=== PATIENT | female | born 1950 | race Caucasian/White ===

== ENCOUNTER 2021-04-22 12:39 | Inpatient (IN) ==
[2021-04-22] MEDS ORDERED: hydrALAZINE 20 MG/1 ML VIAL IV PRN (15:51)
[2021-04-22] MEDS ORDERED: DEXTROSE 50% 25 GM/50 ML VIAL IV PRN ×2 (15:51→16:12)
[2021-04-22] MEDS ORDERED: GLUCAGON 1 MG VIAL IM PRN (15:51)
[2021-04-22 15:58] LABS: ABG Base Excess 2.9 MMOL/L (-2.5-2.5); ABG Oxygen Saturation 95.8 % (95-100); ABG PCO2 47.1 MM HG (35-48); ABG PH 7.388 (7.35-7.45); ABG PO2 81.1 MM HG (80-95); ABG TCO2 26.2 MMOL/L (23-27); Allen Test Positive
[2021-04-22] MEDS ORDERED: ENOXAPARIN 40 MG/0.4 ML SYRINGE SUBCUT SCH (16:00)
[2021-04-22] MEDS ORDERED: [UNRECOGNIZED DRUG - REMARK] TRANSLING PRN (16:06)
[2021-04-22 16:38] LABS: Basophils % 0.3 % (0.0-0.8); Eosinophils % 0.3 % (0.00-10.9); Hematocrit 28.3 VOL% (35.7-47.0); Hemoglobin 8.5 GM/DL (12.0-16.0); Immature Granulocytes % 0.9 %; Immature Granulocytes Absolute 0.13 #; Lymphocytes # 1.3 10*3/uL (1.4-4.0); Lymphocytes % 8.8 % (21.3-54.2); Mean Corpuscular Volume 104.4 FL (87-102); Mean Platelet Volume 9.9 FL (9.6-12.0); Monocytes % 11.7 % (1.7-12.7); Platelet Count 278 T/CUMM (130-400); Red Blood Count 2.71 MC/CUMM (3.8-5.5); White Blood Count 14.5 T/CUMM (4-12)
[2021-04-22] MEDS: FUROSEMIDE 40 MG/4 ML VIAL IV SCH (16:50)
[2021-04-22 17:10] LABS: Calcium 8.2 MG/DL (8.5-10.1); Risk Ratio 1.43; Thyroid Stimulating Hormone 1.68 uIU/ml (0.358-3.74); VLDL Cholesterol 12.2 MG/DL
[2021-04-22] MEDS ORDERED: MAGNESIUM SULF RIDER 2 GM/50 ML PREMIX IV PRN (17:27)
[2021-04-22] MEDS ORDERED: MAGNESIUM SULF RIDER 4 GM/100 ML PREMIX IV PRN (17:27)
[2021-04-22] MEDS: INSULIN LISPRO 100 UNIT/ML SUBCUT SCH ×2 (18:10→21:34)
[2021-04-22] MEDS: ALBUTEROL/IPRATROPIUM 3 ML NEB RESP TX SCH (19:22)
[2021-04-22] MEDS: ENOXAPARIN 100 MG/ML SYRINGE SUBCUT SCH (19:35)
[2021-04-22] MEDS ORDERED: carvediloL 3.125 MG TABLET PO SCH (21:00)
[2021-04-22] MEDS: ACETAMINOPHEN 325 MG TABLET PO PRN (21:33)
[2021-04-23] MEDS: ALBUTEROL/IPRATROPIUM 3 ML NEB RESP TX SCH ×4 (00:59→19:38)
[2021-04-23] MEDS: ACETAMINOPHEN 325 MG TABLET PO PRN (02:15)
[2021-04-23 04:57] LABS: Basophils % 0.2 % (0.0-0.8); Eosinophils # 0.1 10*3/uL (0.0-0.87); Eosinophils % 0.5 % (0.00-10.9); Hematocrit 26.8 VOL% (35.7-47.0); Hemoglobin 8.5 GM/DL (12.0-16.0); Immature Granulocytes % 0.7 %; Lymphocytes # 1.4 10*3/uL (1.4-4.0); Lymphocytes % 9.9 % (21.3-54.2); Mean Corpuscular HGB Conc 31.7 GM/DL (32-36); Mean Corpuscular Volume 103.5 FL (87-102); Mean Platelet Volume 10.1 FL (9.6-12.0); Monocytes % 11.4 % (1.7-12.7); Neutrophils % 77.3 % (38.7-73.9); Platelet Count 287 T/CUMM (130-400); Red Blood Count 2.59 MC/CUMM (3.8-5.5); White Blood Count 13.8 T/CUMM (4-12)
[2021-04-23] MEDS: ENOXAPARIN 100 MG/ML SYRINGE SUBCUT SCH ×2 (05:42→15:50)
[2021-04-23 05:46] LABS: Calcium 8.4 MG/DL (8.5-10.1); Osmolality,Calculated 290.5 MOS/KG (273-304)
[2021-04-23] MEDS: FUROSEMIDE 40 MG/4 ML VIAL IV SCH ×2 (09:01→15:50)
[2021-04-23] MEDS: TERAZOSIN 5 MG CAPSULE PO SCH (09:02)
[2021-04-23] MEDS: SIMVASTATIN 10 MG TABLET PO SCH (09:02)
[2021-04-23] MEDS: ASPIRIN EC 81 MG TABLET PO SCH (09:02)
[2021-04-23] MEDS: LOSARTAN 50 MG TABLET PO SCH (09:02)
[2021-04-23] MEDS: carvediloL 6.25 MG TABLET PO SCH ×2 (09:02→21:39)
[2021-04-23] MEDS: SPIRONOLACTONE 25 MG TABLET PO SCH (09:02)
[2021-04-23] MEDS: ISOSORBIDE MONONITRATE 30 MG TABLET PO SCH (09:02)
[2021-04-23] MEDS: PARoxetine 20 MG TABLET PO SCH (09:03)
[2021-04-23] MEDS: INSULIN LISPRO 100 UNIT/ML SUBCUT SCH ×4 (09:03→21:39)
[2021-04-23] MEDS: INSULIN REGULAR ** CONC 500 UNIT/ML ** 20 ML VIAL SUBCUT SCH ×4 (09:54→15:50)
[2021-04-23] MEDS: ONDANSETRON 4 MG/2 ML VIAL IV PRN ×2 (13:47→21:39)
[2021-04-23] MEDS: PROMETHAZINE 25 MG/1 ML VIAL IM PRN (17:06)
[2021-04-24] MEDS: ALBUTEROL/IPRATROPIUM 3 ML NEB RESP TX SCH ×4 (00:39→19:28)
[2021-04-24] MEDS: PROMETHAZINE 25 MG/1 ML VIAL IM PRN (02:22)
[2021-04-24 05:47] LABS: Basophils % 0.2 % (0.0-0.8); Eosinophils # 0.1 10*3/uL (0.0-0.87); Hematocrit 26.1 VOL% (35.7-47.0); Hemoglobin 8.2 GM/DL (12.0-16.0); Immature Granulocytes % 0.6 %; Immature Granulocytes Absolute 0.08 #; Lymphocytes # 1.2 10*3/uL (1.4-4.0); Lymphocytes % 9.2 % (21.3-54.2); Mean Corpuscular HGB Conc 31.4 GM/DL (32-36); Mean Corpuscular Volume 102.8 FL (87-102); Monocytes % 9.2 % (1.7-12.7); Neutrophils % 79.8 % (38.7-73.9); Platelet Count 300 T/CUMM (130-400); Red Blood Count 2.54 MC/CUMM (3.8-5.5); Red Cell Distribution Width 15.9 % (9.3-17.3); White Blood Count 12.7 T/CUMM (4-12)
[2021-04-24 06:00] LABS: Calcium 8.6 MG/DL (8.5-10.1); Potassium 3.7 MMOL/L (3.5-5.1)
[2021-04-24] MEDS: ENOXAPARIN 100 MG/ML SYRINGE SUBCUT SCH ×3 (06:45→16:33)
[2021-04-24] MEDS ORDERED: methylPREDNISolone SOD SUC 125 MG/2 ML VIAL IV ONE (08:02)
[2021-04-24] MEDS: PARoxetine 20 MG TABLET PO SCH (09:25)
[2021-04-24] MEDS: SPIRONOLACTONE 25 MG TABLET PO SCH (09:25)
[2021-04-24] MEDS: carvediloL 6.25 MG TABLET PO SCH ×2 (09:25→20:47)
[2021-04-24] MEDS: LOSARTAN 50 MG TABLET PO SCH (09:25)
[2021-04-24] MEDS: ASPIRIN EC 81 MG TABLET PO SCH (09:25)
[2021-04-24] MEDS: TERAZOSIN 5 MG CAPSULE PO SCH (09:26)
[2021-04-24] MEDS: SIMVASTATIN 10 MG TABLET PO SCH (09:26)
[2021-04-24] MEDS: FUROSEMIDE 40 MG/4 ML VIAL IV SCH ×2 (09:26→16:23)
[2021-04-24] MEDS: ISOSORBIDE MONONITRATE 30 MG TABLET PO SCH (09:26)
[2021-04-24] MEDS: INSULIN GLARGINE 100 UNIT/ML SUBCUT SCH (09:31)
[2021-04-24] MEDS: INSULIN REGULAR ** CONC 500 UNIT/ML ** 20 ML VIAL SUBCUT SCH ×3 (09:31→16:24)
[2021-04-24] MEDS: INSULIN LISPRO 100 UNIT/ML SUBCUT SCH ×4 (09:36→20:48)
[2021-04-25] MEDS ORDERED: MELATONIN 3 MG TABLET PO PRN (00:35)
[2021-04-25] MEDS: CALCIUM CARBONATE CHEW 500 MG TABLET PO PRN ×2 (00:56→00:57)
[2021-04-25] MEDS: ALBUTEROL/IPRATROPIUM 3 ML NEB RESP TX SCH ×4 (01:20→20:00)
[2021-04-25] MEDS: ENOXAPARIN 100 MG/ML SYRINGE SUBCUT SCH ×2 (05:31→17:07)
[2021-04-25] MEDS: ASPIRIN EC 81 MG TABLET PO SCH (09:56)
[2021-04-25] MEDS: LOSARTAN 50 MG TABLET PO SCH (09:56)
[2021-04-25] MEDS: carvediloL 6.25 MG TABLET PO SCH ×2 (09:57→21:10)
[2021-04-25] MEDS: PARoxetine 20 MG TABLET PO SCH (09:57)
[2021-04-25] MEDS: SIMVASTATIN 10 MG TABLET PO SCH (09:57)
[2021-04-25] MEDS: ISOSORBIDE MONONITRATE 30 MG TABLET PO SCH (09:57)
[2021-04-25] MEDS: SPIRONOLACTONE 25 MG TABLET PO SCH (09:57)
[2021-04-25] MEDS: FUROSEMIDE 40 MG/4 ML VIAL IV SCH ×2 (09:58→16:27)
[2021-04-25] MEDS: INSULIN GLARGINE 100 UNIT/ML SUBCUT SCH (09:58)
[2021-04-25] MEDS: INSULIN LISPRO 100 UNIT/ML SUBCUT SCH ×4 (09:59→21:10)
[2021-04-25] MEDS: TERAZOSIN 5 MG CAPSULE PO SCH (10:02)
[2021-04-25] MEDS: INSULIN REGULAR ** CONC 500 UNIT/ML ** 20 ML VIAL SUBCUT SCH ×3 (10:24→16:26)
[2021-04-25] MEDS ORDERED: INSULIN GLARGINE 100 UNIT/ML SUBCUT ONE (11:01)
[2021-04-25] MEDS ORDERED: SODIUM CHLORIDE 0.9% 1,000 ML IV PRN (11:02)
[2021-04-25] MEDS ORDERED: FUROSEMIDE 40 MG/4 ML VIAL IV PRN (11:02)
[2021-04-25] MEDS ORDERED: NAPROXEN 250 MG TABLET PO PRN (11:08)
[2021-04-25] MEDS: ACETAMINOPHEN 325 MG TABLET PO PRN (19:06)
[2021-04-26] MEDS: ALBUTEROL/IPRATROPIUM 3 ML NEB RESP TX SCH ×2 (01:10→07:48)
[2021-04-26 05:19] LABS: Basophils % 0.2 % (0.0-0.8); Eosinophils # 0.1 10*3/uL (0.0-0.87); Eosinophils % 0.6 % (0.00-10.9); Hematocrit 34.7 VOL% (35.7-47.0); Hemoglobin 10.8 GM/DL (12.0-16.0); Immature Granulocytes % 0.5 %; Immature Granulocytes Absolute 0.05 #; Lymphocytes # 1.8 10*3/uL (1.4-4.0); Lymphocytes % 18.1 % (21.3-54.2); Mean Corpuscular HGB Conc 31.1 GM/DL (32-36); Mean Corpuscular Volume 97.5 FL (87-102); Mean Platelet Volume 9.9 FL (9.6-12.0); Monocytes % 8.4 % (1.7-12.7); Neutrophils % 72.2 % (38.7-73.9); Platelet Count 359 T/CUMM (130-400); Red Blood Count 3.56 MC/CUMM (3.8-5.5); Red Cell Distribution Width 17.9 % (9.3-17.3); White Blood Count 10.1 T/CUMM (4-12)
[2021-04-26] MEDS: ENOXAPARIN 100 MG/ML SYRINGE SUBCUT SCH (05:45)
[2021-04-26 05:57] LABS: Calcium 9.3 MG/DL (8.5-10.1); Osmolality,Calculated 291.4 MOS/KG (273-304); Potassium 2.9 MMOL/L (3.5-5.1)
[2021-04-26] MEDS ORDERED: POTASSIUM CHLORIDE 20 MEQ TABLET PO ONE ×2 (08:34→12:00)
[2021-04-26] MEDS ORDERED: INSULIN GLARGINE 100 UNIT/ML SUBCUT SCH (09:00)
[2021-04-26] MEDS: INSULIN REGULAR ** CONC 500 UNIT/ML ** 20 ML VIAL SUBCUT SCH ×2 (09:09→12:11)
[2021-04-26] MEDS: SIMVASTATIN 10 MG TABLET PO SCH (09:11)
[2021-04-26] MEDS: ASPIRIN EC 81 MG TABLET PO SCH (09:11)
[2021-04-26] MEDS: LOSARTAN 50 MG TABLET PO SCH (09:12)
[2021-04-26] MEDS: carvediloL 6.25 MG TABLET PO SCH (09:12)
[2021-04-26] MEDS: SPIRONOLACTONE 25 MG TABLET PO SCH (09:12)
[2021-04-26] MEDS: ISOSORBIDE MONONITRATE 30 MG TABLET PO SCH (09:12)
[2021-04-26] MEDS: PARoxetine 20 MG TABLET PO SCH (09:12)
[2021-04-26] MEDS: FUROSEMIDE 40 MG/4 ML VIAL IV SCH (09:19)
[2021-04-26] MEDS: INSULIN LISPRO 100 UNIT/ML SUBCUT SCH ×2 (09:23→12:05)
[2021-04-26] MEDS: TERAZOSIN 5 MG CAPSULE PO SCH (10:22)
[2021-04-26] MEDS: ACETAMINOPHEN 325 MG TABLET PO PRN (10:41)
[2021-04-26] MEDS ORDERED: TUBERCULIN SKIN TEST 0.1 ML SYRINGE INTRADERM ONE (10:48)
[2021-04-26 12:36] VITALS: BP 154/62
== END 2021-04-26 14:34 | disposition swing bed (61) | DRG 291 ==
LOC: N.TELEN → SUATTDRO 14:28
PROVIDERS: ADMIT Internal Medicine; ATTEND Internal Medicine